=== PATIENT | male | born 1985 | race Caucasian/White ===

== ENCOUNTER 2022-12-03 22:14 | Emergency (ER) | payer BC ==
[~2022-12-03] VITALS: Ht 170.2 cm; Wt 86.2 kg
--- NOTE | 2022-12-03 22:55 | NUR ---
Patient triaged and placed in waiting room. VSS and patient appears in no acute distress at this time. Awaiting available bed, and MD Vergara notified of need for MSE.
[2022-12-03 22:56] VITALS: BP_SYST 207
--- NOTE | 2022-12-03 22:56 | NUR ---
Patient to ER bed H2 to gown for evaluation. Side rails up. Report given to ED Florentino.
--- NOTE | 2022-12-03 22:57 | NUR ---
ER at bedside examining patient.
[2022-12-03] MEDS ORDERED: KETOROLAC TROMETHAMINE 60 MG/2 ML VIAL IM ONE (23:00)
[2022-12-03] MEDS ORDERED: IBUP-1971 PO (23:19)
--- NOTE | 2022-12-03 23:56 | NUR ---
Patient given written and verbal discharge instructions and verbalizes understanding. ER MD Vergara discussed with patient the results and treatment provided. Patient in stable condition. ID arm band removed. Rx sent to preferred pharmacy. Patient educated on pain management and to follow up with PMD. Pain Scale 1/10 Opportunity for questions provided and answered. Medication side effect fact sheet provided.
[2022-12-04 00:14] VITALS: BP_SYST 176
== END 2022-12-03 23:55 | disposition home or self-care (01) ==
LOC: SED 22:14
DX: M79.18 Myalgia, other site (principal); R10.12 Left upper quadrant pain; M54.2 Cervicalgia; Z88.1 Allergy status to other antibiotic agents; Z79.899 Other long term (current) drug therapy
CPT/HCPCS: 99283; 96372; J1885